=== PATIENT | male | born 1960 | race Caucasian/White ===

== ENCOUNTER 2016-08-07 18:26 | Emergency (ER) | payer MEDICARE, MEDICAID | END 2016-08-07 21:22 | disposition home or self-care (01) | LOC: D.ER 18:26 | DX: M25.552 Pain in left hip (principal); S76.012A Strain of muscle, fascia and tendon of left hip, initial encounter; X58.XXXA Exposure to other specified factors, initial encounter; Y93.89 Activity, other specified; Y92.89 Other specified places as the place of occurrence of the external cause; M62.838 Other muscle spasm; I10 Essential (primary) hypertension ==

== ENCOUNTER 2017-04-25 05:30 | Day surgery (SDC) | payer MEDICARE, MEDICAID ==
[2017-04-21 13:11] LABS: BASOPHILS 0.3 % (0-2); HEMATOCRIT 36.6 % (42.0-54.0); HEMOGLOBIN 12.2 g/dL (13.5-17.5); IMMATURE GRANULOCYTES 0.3 % (0-5); LYMPHOCYTES 36.9 % (15-50); MCH 31.9 pg (26.0-34.0); MCHC 33.3 g/dL (31.0-37.0); MCV 95.8 fL (80.0-100.0); MEAN PLATELET VOLUME 9.3 fL (7.4-10.4); MONOCYTES 12.8 % (2-11); NEUTROPHILS 45.7 % (40-80); RBC 3.82 10x6/uL (4.20-6.10); RDW 13.3 % (11.5-14.5)
[2017-04-21 13:17] LABS: PLATELET COUNT 146 10x3/uL (130-400)
[2017-04-21 13:24] LABS: ANION GAP 13.9 mmol/L (8-16); CALCIUM 9.2 mg/dL (8.5-10.1); CARBON DIOXIDE 30.3 mmol/L (21.0-32.0); CREATININE - SERUM 5.8 mg/dL (0.6-1.3); POTASSIUM - SERUM 4.2 mmol/L (3.5-5.1)
[2017-04-21 13:25] LABS: INR 0.97 (0.85-1.17); PROTIME 12.4 SECONDS (11.6-15.0)
[2017-04-21 13:28] LABS: APTT 146.4 SECONDS (22.8-39.4)
[~2017-04-25] VITALS: Ht 182.9 cm; Wt 81.6 kg
[~2017-04-25 05:30] MED LIST: CLONAZEPAM2 MG/TAB PO; HYDRALAZINE HCL25 MG PO
[2017-04-25] MEDS ORDERED: ZYLOPRIM100 MG PO (06:34)
[2017-04-25] MEDS ORDERED: CARAFATE1 G PO (06:35)
[2017-04-25 06:36] VITALS: Ht 182.9 cm; Wt 81.6 kg
--- NOTE | 2017-04-25 08:56 | NUR ---
ANESTHESIA DID BLOCK TO LEFT ARM, SEE ANESTHESIA NOTES
--- NOTE | 2017-05-12 15:11 | OP ---
PATIENT NAME: OVI DENG JR MEDICAL RECORD: [id number] :60 LOCATION:[facility] ADMISSION DATE: SURGEON: OLGA AVILES MD DATE OF OPERATION: 04/25/2017 PREOPERATIVE DIAGNOSIS: End-stage renal disease, on dialysis. POSTOPERATIVE DIAGNOSIS: End-stage renal disease, on dialysis. REFERRING PHYSICIAN: Dr. Frey. ADDITIONAL DIAGNOSIS: Other mechanical complication of left arm AV fistula. SURGEON: Olga Aviles MD. ANESTHESIA: Nerve block per Dr. Pitts and general anesthesia by LMA per WRAP CHECKER. PREOPERATIVE NOTE: Mr. Deng is a 56-year-old white male patient with end-stage renal disease, who is on hemodialysis at this time using a tunneled catheter. He has had a prior wrist fistula, which failed and has had a prior distal brachial or even proximal radial artery based AV fistula, which drained entirely to the basilic system and that brachiobasilic fistula has never been translocated. It is difficult to access of course and needs revision by translocation and he is brought to the operating room for that procedure today. Under general anesthetic and with the nerve block, he was prepped and draped in a sterile manner. I examined him with duplex ultrasound and then made a long incision from axilla to antecubital space. The incision subsequently curved transversely in order to expose the basilic vein and the medial cubital vein down to the arterial anastomosis. The vein was found to have a fairly intense inflammatory reaction around his lower half, I assume from prior percutaneous access for dialysis. The upper half was in good shape. The vein itself was generally well matured. The wall of the JA segment was quite thickened. The inflammatory process around the distal half made the dissection considerably more difficult, but the vein was eventually mobilized with quite a bit of redundancy, which allowed me to place it in a very nice anterior tunnel. The patient was heparinized with 3000 units of heparin and a tunnel made with Impra tunneling device and a Terence tunneler. The vein was clamped and transected. It was treated with topical papaverine and flushed with heparinized saline. The arterial end also was flushed with heparinized saline and the vein marked with a surgical marker was then pulled through the subcutaneous tunnel as close to the skin as possible and back down to the antecubital space. There was ample length of vein to perform the anastomosis under no tension. The anastomosis was done between bevelled ends of the vein in an end-to-end fashion with running continuous 7-0 Prolene. When completed, the fistula developed flow and pulsation and the suture line was hemostatic; however, the flow in the proximal portion of the fistula was not satisfactory. I performed an intraoperative fistulogram and found the only problem was a stenosis at the anastomotic site. The patient, who had had his heparin partially reversed by this time, was given another 2000 units of heparin and after adequate circulation time, the graft was clamped proximal and distal to the anastomosis. The anastomosis was totally excised and the vein again bevelled. The ngo were thickened as I noted, but not quite so much as where the first anastomosis was done. Another end-to-end anastomosis between bevelled ends of the vein was performed with running 7-0 Prolene and when completed and clamps were released, much better flow developed OPERATIVE REPORT [id number] OVI DENG JR in the fistula and the suture line was indeed hemostatic and the suture line was not under any tension. I did not repeat a fistulogram at this point, I irrigated the wound with Ancef and gentamicin solution, assured hemostasis with electrocautery. During mobilization of the vein, it was necessary to actually divide a very broad communicating or perforating vein and both ends of that were oversewn with running 7-0 Prolene. I double checked that suture line on the basilic vein and found it to be hemostatic without any evidence of stenosis of the vein from that. The patient's wound was closed with interrupted inverted 3-0 Vicryl and running intracuticular 4-0 Monocryl and Dermabond glue. The site was dressed with Maxorb Ag, Tegaderm, and Cavilon skin prep. There was good flow in the radial artery by Doppler at the wrist and no signs of ischemia or any other complications. The patient was awakened and in stable condition taken to the recovery room. Blood loss during the operation was about 25 cc, none was replaced intraoperatively. All sponges, instruments, and needles were accounted for. No drain was used and no surgical specimen was submitted for histopathology. The patient was given a total of 5000 units of heparin during the procedure and this was partially reversed during the procedure with 15 mg of protamine. Also, the patient was given 20 mcg of DDAVP intraoperatively. PLAN: The patient will go home today with a prescription for Ranger 5/325, #20. He may take 1 or if necessary two p.o. q.4-6 hours p.r.n. for pain and he will resume his normal dialysis schedule and continue his home medications and renal diet and follow up with me in 2 weeks. I do think he is at risk for recurrent stenosis or stricturing of the JA segment and I recommend that he have an initial fistulogram at [facility] in 4 weeks. After that, probably the fistula can be utilized for access and the TDC removed. TRANSINT:[id number] Voice Confirmation ID: [id number] DOCUMENT ID: [id number] OLGA AVILES MD at 1511 CC: DAMON FREY MD [id number] DICTATION DATE: 04/25/171225 BIKE DESIGNER: 04/25/17 1311 [facility] 04/25/17 [facility] [address] [place] [address]
== END 2017-04-25 14:05 | disposition home or self-care (01) ==
LOC: D.OPS 05:30 → D.PAN 08:00 → D.OPS 14:05
PROVIDERS: Surgery
DX: T82.590A Other mechanical complication of surgically created arteriovenous fistula, initial encounter (principal); N18.6 End stage renal disease; Z99.2 Dependence on renal dialysis; Z01.812 Encounter for preprocedural laboratory examination

== ENCOUNTER 2017-05-16 09:05 | Inpatient (IN) | payer MEDICARE, MEDICAID ==
[~2017-05-16] VITALS: Ht 182.9 cm; Wt 80.9 kg
[2017-05-16] VITALS (7 sets, daily range): BP systolic 125–168; BP diastolic 57–73; BMI 24.8
[~2017-05-16 09:05] MED LIST changes: +CARAFATE1 G PO; +ZYLOPRIM100 MG PO
[2017-05-16] MEDS ORDERED: SENSIPAR60 MG PO (10:13)
[2017-05-16 10:32] LABS: ANION GAP 18.9 mmol/L (8-16); CALCIUM 9.8 mg/dL (8.5-10.1); CARBON DIOXIDE 26.2 mmol/L (21.0-32.0); CREATININE - SERUM 9.1 mg/dL (0.6-1.3); POTASSIUM - SERUM 5.1 mmol/L (3.5-5.1)
[2017-05-16 10:33] LABS: BASOPHILS 0.4 % (0-2); EOSINOPHILS 11.5 % (0-7); HEMATOCRIT 33.9 % (42.0-54.0); HEMOGLOBIN 10.6 g/dL (13.5-17.5); IMMATURE GRANULOCYTES 0.7 % (0-5); MCH 30.9 pg (26.0-34.0); MCHC 31.3 g/dL (31.0-37.0); MCV 98.8 fL (80.0-100.0); MEAN PLATELET VOLUME 8.8 fL (7.4-10.4); MONOCYTES 7.7 % (2-11); NEUTROPHILS 50.7 % (40-80); RBC 3.43 10x6/uL (4.20-6.10); RDW 12.7 % (11.5-14.5); WBC 5.5 10x3/uL (4.8-10.8)
[2017-05-16 10:35] LABS: PLATELET COUNT 258 10x3/uL (130-400)
[2017-05-16 10:38] LABS: APTT 37.4 SECONDS (22.8-39.4); INR 1.11 (0.85-1.17); PROTIME 13.9 SECONDS (11.6-15.0)
[2017-05-17] VITALS: BP 137/75
[2017-05-17 04:00] VITALS: BP 136/65
[2017-05-17 07:39] VITALS: BP 117/70
[2017-05-17 15:21] VITALS: BP 120/77
[2017-05-17 19:00] VITALS: BP 140/79
[2017-05-18] VITALS: BP 111/60
[2017-05-18 04:00] VITALS: BP 151/79
[2017-05-18 08:07] VITALS: BP 111/66
[2017-05-18 11:10] VITALS: BP 137/75
[2017-05-18 15:27] VITALS: BP 144/77
[2017-05-18 20:00] VITALS: BP 154/82
[2017-05-19] VITALS: BP 138/75
[2017-05-19 06:13] LABS: BASOPHILS 0.2 % (0-2); EOSINOPHILS 10.5 % (0-7); HEMOGLOBIN 9.5 g/dL (13.5-17.5); IMMATURE GRANULOCYTES 0.5 % (0-5); LYMPHOCYTES 32.7 % (15-50); MCHC 32.8 g/dL (31.0-37.0); MCV 94.8 fL (80.0-100.0); MONOCYTES 8.5 % (2-11); NEUTROPHILS 47.6 % (40-80); PLATELET COUNT 240 10x3/uL (130-400); RBC 3.06 10x6/uL (4.20-6.10); RDW 12.4 % (11.5-14.5); WBC 5.5 10x3/uL (4.8-10.8)
[2017-05-19 06:41] LABS: ANION GAP 19.3 mmol/L (8-16); CALCIUM 9.1 mg/dL (8.5-10.1); CARBON DIOXIDE 24.6 mmol/L (21.0-32.0); CREATININE - SERUM 10.6 mg/dL (0.6-1.3); POTASSIUM - SERUM 5.9 mmol/L (3.5-5.1)
[2017-05-19 07:48] VITALS: BP 133/75
[2017-05-19 11:39] VITALS: BP 147/93
[2017-05-19 19:00] VITALS: BP 139/85
[2017-05-20 04:00] VITALS: BP 164/89
[2017-05-20 07:13] LABS: HEMATOCRIT 27.4 % (42.0-54.0); HEMOGLOBIN 9.3 g/dL (13.5-17.5); MCH 31.8 pg (26.0-34.0); MCHC 33.9 g/dL (31.0-37.0); MCV 93.8 fL (80.0-100.0); MEAN PLATELET VOLUME 8.1 fL (7.4-10.4); NEUTROPHILS 52.2 % (40-80); PLATELET COUNT 242 10x3/uL (130-400); RBC 2.92 10x6/uL (4.20-6.10); RDW 12.6 % (11.5-14.5); WBC 5.4 10x3/uL (4.8-10.8)
[2017-05-20 07:25] LABS: ANION GAP 16.3 mmol/L (8-16); CALCIUM 9.3 mg/dL (8.5-10.1); CARBON DIOXIDE 26.8 mmol/L (21.0-32.0); POTASSIUM - SERUM 5.1 mmol/L (3.5-5.1); VANCOMYCIN - RANDOM 16.7 ug/mL (10.0-20.0)
[2017-05-20 07:27] LABS: PHOSPHOROUS 6.4 mg/dL (2.5-4.9)
[2017-05-20 08:26] VITALS: BP 138/85
[2017-05-20 11:40] VITALS: BP 139/71
[2017-05-20 16:11] VITALS: BP 147/96
[2017-05-20 19:00] VITALS: BP 146/85
[2017-05-21 01:00] VITALS: BP 138/79
[2017-05-21 03:34] VITALS: BP 152/83
[2017-05-21 05:40] LABS: BASOPHILS 0.4 % (0-2); HEMATOCRIT 31.3 % (42.0-54.0); HEMOGLOBIN 10.3 g/dL (13.5-17.5); IMMATURE GRANULOCYTES 0.4 % (0-5); MCH 31.3 pg (26.0-34.0); MCHC 32.9 g/dL (31.0-37.0); MCV 95.1 fL (80.0-100.0); MEAN PLATELET VOLUME 8.8 fL (7.4-10.4); NEUTROPHILS 42.2 % (40-80); PLATELET COUNT 259 10x3/uL (130-400); RBC 3.29 10x6/uL (4.20-6.10); RDW 12.7 % (11.5-14.5)
[2017-05-21 05:41] LABS: WBC 7.3 10x3/uL (4.8-10.8)
[2017-05-21 06:04] LABS: ANION GAP 18.8 mmol/L (8-16); CALCIUM 9.8 mg/dL (8.5-10.1); PHOSPHOROUS 7.6 mg/dL (2.5-4.9); POTASSIUM - SERUM 4.8 mmol/L (3.5-5.1)
[2017-05-21 06:07] LABS: CREATININE - SERUM 10.3 mg/dL (0.6-1.3)
[2017-05-21 08:32] VITALS: BP 151/79
[2017-05-21 11:24] VITALS: BP 146/83
[2017-05-21 15:46] VITALS: BP 140/71
[2017-05-21 20:00] VITALS: BP 155/79
[2017-05-22] VITALS: BP 150/92
[2017-05-22 04:00] VITALS: BP 149/85
[2017-05-22 06:45] LABS: ANION GAP 21.3 mmol/L (8-16); CALCIUM 9.5 mg/dL (8.5-10.1); CARBON DIOXIDE 25.1 mmol/L (21.0-32.0); CREATININE - SERUM 12.8 mg/dL (0.6-1.3); PHOSPHOROUS 7.6 mg/dL (2.5-4.9); POTASSIUM - SERUM 5.4 mmol/L (3.5-5.1)
[2017-05-22 06:57] LABS: BASOPHILS 0.3 % (0-2); EOSINOPHILS 9.9 % (0-7); HEMATOCRIT 29.8 % (42.0-54.0); HEMOGLOBIN 9.7 g/dL (13.5-17.5); IMMATURE GRANULOCYTES 0.3 % (0-5); LYMPHOCYTES 30.4 % (15-50); MCH 30.7 pg (26.0-34.0); MCHC 32.6 g/dL (31.0-37.0); MCV 94.3 fL (80.0-100.0); MONOCYTES 7.3 % (2-11); NEUTROPHILS 51.8 % (40-80); PLATELET COUNT 245 10x3/uL (130-400); RBC 3.16 10x6/uL (4.20-6.10); RDW 12.5 % (11.5-14.5); WBC 5.9 10x3/uL (4.8-10.8)
[2017-05-22 07:55] VITALS: BP 156/79
[2017-05-22 16:17] VITALS: BP 132/87
[2017-05-22 19:00] VITALS: BP 138/83
[2017-05-23 04:00] VITALS: BP 124/79
[2017-05-23 06:01] LABS: EOSINOPHILS 8.2 % (0-7); HEMATOCRIT 30.8 % (42.0-54.0); HEMOGLOBIN 9.9 g/dL (13.5-17.5); IMMATURE GRANULOCYTES 0.3 % (0-5); LYMPHOCYTES 32.5 % (15-50); MCHC 32.1 g/dL (31.0-37.0); MEAN PLATELET VOLUME 8.9 fL (7.4-10.4); MONOCYTES 8.6 % (2-11); NEUTROPHILS 49.4 % (40-80); RBC 3.19 10x6/uL (4.20-6.10); RDW 12.5 % (11.5-14.5); WBC 5.7 10x3/uL (4.8-10.8)
[2017-05-23 06:15] LABS: MCV 96.6 fL (80.0-100.0); PLATELET COUNT 195 10x3/uL (130-400)
[2017-05-23 06:20] LABS: ANION GAP 17.1 mmol/L (8-16); CARBON DIOXIDE 27.8 mmol/L (21.0-32.0); CREATININE - SERUM 9.6 mg/dL (0.6-1.3); PHOSPHOROUS 6.9 mg/dL (2.5-4.9); POTASSIUM - SERUM 5.9 mmol/L (3.5-5.1)
[2017-05-23 08:46] VITALS: BP 131/85
[2017-05-23 10:41] VITALS: Ht 182.9 cm; Wt 80.9 kg
[2017-05-23 11:23] VITALS: BP 138/83
[2017-05-23 15:39] VITALS: BP 140/77
[2017-05-23 20:00] VITALS: BP 138/82
[2017-05-24] VITALS: BP 142/87
[2017-05-24 04:00] VITALS: BP 122/70
[2017-05-24] MEDS ORDERED: BACTRIM DS TABL1 TAB PO (07:39)
[2017-05-24] MEDS ORDERED: DAKIN'S 0.125%480 M1 TOPICAL (07:40)
[2017-05-24 08:28] VITALS: BP 134/83
[2017-05-24 11:38] VITALS: BP 126/68
[2017-05-24 19:00] VITALS: BP 124/73
[2017-05-25 04:00] VITALS: BP 141/75
[2017-05-25 08:18] VITALS: BP 152/83
== END 2017-05-25 10:32 | disposition home health service (06) | DRG 252 ==
LOC: D.OPS 09:05 → D.M2 14:58 → D.OPS 14:59 → D.M2 15:00
PROVIDERS: Internal Medicine Nephrology; Surgery
PROC: 057A3ZZ Dilation of Left Brachial Vein, Percutaneous Approach (ICD-10-PCS; 2017-05-16)
PROC: 057F3ZZ Dilation of Left Cephalic Vein, Percutaneous Approach (ICD-10-PCS; 2017-05-16)
PROC: 0HCEXZZ Extirpation of Matter from Left Lower Arm Skin, External Approach (ICD-10-PCS; 2017-05-16)
PROC: B51W1ZZ Fluoroscopy of Dialysis Shunt/Fistula using Low Osmolar Contrast (ICD-10-PCS; principal; 2017-05-16 10:00)
PROC: 5A1D70Z Performance of Urinary Filtration, Intermittent, Less than 6 Hours Per Day (ICD-10-PCS; 2017-05-17)
DX: T82.7XXA Infection and inflammatory reaction due to other cardiac and vascular devices, implants and grafts, initial encounter (principal); N18.6 End stage renal disease; L76.32 Postprocedural hematoma of skin and subcutaneous tissue following other procedure; I12.0 Hypertensive chronic kidney disease with stage 5 chronic kidney disease or end stage renal disease; Y83.8 Other surgical procedures as the cause of abnormal reaction of the patient, or of later complication, without mention of misadventure at the time of the procedure; Z99.2 Dependence on renal dialysis; D63.1 Anemia in chronic kidney disease; E83.39 Other disorders of phosphorus metabolism; B96.89 Other specified bacterial agents as the cause of diseases classified elsewhere

== ENCOUNTER 2017-06-16 06:15 | Day surgery (SDC) | payer MEDICARE, MEDICAID ==
[~2017-06-16] VITALS: Ht 182.9 cm; Wt 81.6 kg
--- NOTE | ~2017-06-16 | OP ---
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 OPERATION PERFORMED: Left arm AV fistulogram followed by balloon angioplasty of the left brachiocephalic vein and drug-coated balloon therapy with a 12 mm diameter x 4 cm long Lutonix drug-coated balloon. SURGEON: Olga Aviles MD ANESTHESIA: General by ACCOUNTS RECEIVABLE MANAGER with LMA. REFERRING PHYSICIAN: Darius العلي MD PREOPERATIVE NOTE: Mr. Deng is a 57-year-old white male on chronic hemodialysis, presently with a right internal jugular tunneled dialysis catheter. He has had a left brachial artery to translocated basilic vein AV fistula created in 2 stages and did have a problem with postop infected hematoma, seroma, abscess in his left arm after the second procedure. Since then, he has had considerable swelling and has a known left brachiocephalic venous stenosis. He is brought to the operating room at this time to repeat fistulogram and likely repeat dilatation of the brachiocephalic vein. The arm itself is actually less swollen than when I saw in the office recently and I think that it is just generally time to begin using that arm for his dialysis access and get the catheter out. Under anesthesia in supine position, the patient was prepped and draped in sterile manner. The fistula was accessed near the arterial end with micropuncture technique and a fistulogram performed, which revealed no abnormalities other than a recurrent 80% stenosis of the left brachiocephalic vein. A fairly short stenosis involving the proximal segment just at the confluence with the right brachiocephalic to form no superior vena cava. This lesion was then dilated with a 12 mm diameter x 4 cm long Bard UVerse angioplasty balloon, which was inflated with full effacement. Following that, a repeat angiogram demonstrated about 10% persistent or recurrent elastic recoil stenosis. This area was then treated with a Lutonix balloon 12 mm diameter x 4 cm long, inflated to full effacement and 10 atmospheres of pressure and held inflated for 2 minutes. After that the drug-coated balloon was removed and repeat contrast injection revealed a good response with still about 10% persistent stenosis present. The hardware was removed and hemostasis obtained at the puncture site, which had been stepped up to a 9-Faroese. This was done with a cucxne-be-hhdzo 4-0 Prolene and some direct pressure. Subsequently, a dressing of Avitene, Ultrafoam, Tegaderm, and Cavilon skin prep was applied. OPERATIVE REPORT [id number] JERILYNCHLOÉOVIBALBINA LOVE JR I then exposed and prepped the patient's right internal jugular catheter. I did blunt dissection along the catheter in the chest subcutaneous tunnel and freed the Dacron Pooler cuff and removed the catheter. Hemostasis was obtained with a period of pressure and elevation of the head of the bed. Sterile dressing was applied there and the patient awakened and taken to the recovery room. Blood loss was about 10 cc or actually less than that, none was replaced. All sponges, instruments and needles were accounted for. No drain was used and no surgical specimen was submitted for histopathology. Mr. Deng will be allowed to go home today and continue all of the same home medications and renal diet. He will continue the same or routine dialysis schedule. Only his dialysis fistula in the left arm can now be used with 2 needles. It is quite well-developed and mature at this point. The patient should have a repeat angiogram at the first sign of recurrent swelling or venous outflow stenosis redeveloping. I rather expect the brachiocephalic vein will become more stenotic despite the drug-coated balloon therapy, although hopefully not. If it does, I think it should be stented and I think it should be stented with a balloon expandable stent 12 to 14 mm in diameter, probably a Wiseman balloon expandable stent 12 x 4. I would do that in the hospital. TRANSINT:[id number] Voice Confirmation ID: [id number] DOCUMENT ID: [id number] OLGA AVILES MD at 1404 CC: DARIUS العلي [id number] DICTATION DATE: 06/16/17 1306 COTTON OPENER: 06/16/171931 [facility] 06/16/17 [facility] [address] [id number]
[~2017-06-16 06:15] MED LIST changes: +BACTRIM DS TABL1 TAB PO; +DAKIN'S 0.125%480 M1 TOPICAL; +SENSIPAR60 MG PO
[2017-06-16 07:13] LABS: BASOPHILS 0.5 % (0-2); EOSINOPHILS 4.3 % (0-7); HEMOGLOBIN 10.7 g/dL (13.5-17.5); IMMATURE GRANULOCYTES 0.2 % (0-5); LYMPHOCYTES 37.2 % (15-50); MCH 31.2 pg (26.0-34.0); MCHC 32.4 g/dL (31.0-37.0); MCV 96.2 fL (80.0-100.0); MEAN PLATELET VOLUME 9.3 fL (7.4-10.4); MONOCYTES 12.2 % (2-11); NEUTROPHILS 45.6 % (40-80); RBC 3.43 10x6/uL (4.20-6.10); RDW 12.9 % (11.5-14.5); WBC 4.4 10x3/uL (4.8-10.8)
[2017-06-16 07:15] LABS: PLATELET COUNT 144 10x3/uL (130-400)
[2017-06-16 07:22] LABS: INR 1.06 (0.85-1.17); PROTIME 13.4 SECONDS (11.6-15.0)
[2017-06-16 07:24] LABS: ANION GAP 19.6 mmol/L (8-16); CALCIUM 8.9 mg/dL (8.5-10.1); CARBON DIOXIDE 26.5 mmol/L (21.0-32.0); CREATININE - SERUM 9.5 mg/dL (0.6-1.3); POTASSIUM - SERUM 5.1 mmol/L (3.5-5.1)
[2017-06-16 08:37] VITALS: Ht 182.9 cm; Wt 81.6 kg
== END 2017-06-16 15:30 | disposition home or self-care (01) ==
LOC: D.OPS 06:15
PROVIDERS: Surgery
DX: T82.590A Other mechanical complication of surgically created arteriovenous fistula, initial encounter (principal); N18.6 End stage renal disease; Z99.2 Dependence on renal dialysis; I87.1 Compression of vein; Z01.812 Encounter for preprocedural laboratory examination

== ENCOUNTER → 2019-10-31 11:47 | Outpatient (CLI) | payer MEDICARE ==
[2017-06-16 08:37] VITALS: BMI 24.4
== END | disposition home or self-care (01) ==
LOC: D.US 10:00
PROVIDERS: ATTEND Surgery
DX: M79.89 Other specified soft tissue disorders (principal)

== ENCOUNTER 2019-12-05 07:22 | Day surgery (SDC) | payer MEDICARE ==
[~2019-12-05] VITALS: Ht 182.9 cm; Wt 84.1 kg
--- NOTE | ~2019-12-05 | HEMODYNAMI ---
PATIENT:OVI DENG JR MEDICAL RECORD: [id number] : 60 LOCATION:[facility] ADMISSION DATE: 12/05/19 Generatedon:12/05/201912:08 Patient name: OVI DENG Patient #: [id number] SSN: : 1960 Date of study: 12/05/2019 Page: Of Hemodynamic Procedure Report Patient Data Patient Demographics Procedure consent was obtained First Name: OVI Gender: Male Last Name: SOWMYA Suffix: [facility] Initial: IVAN : 1960 Patient #: [id number] Age: 59 year(s) Race: Unknown Additional ID: [id number] Contact details [address]: [address] [place] [address] State: [place] [facility] [place]: [address] Past Medical History Allergies: No known allergies Admission Admission Data Admission Date: 12/05/2019 Admission Time: 7:22 Height (in.): 72 BSA: 2.07 (m2) Height (cm.): 182.88 BMI: 25.23 (kg/m2) Weight (lbs.): 186 Weight (kg.): 84.37 Procedure Procedure Types Cath Procedure Peripheral Cath Diagnostic Procedure [facility] Magistrate Peripheral Procedures Venography Extremity Right Lower Ext. Venagram Procedure Description Procedure Date Procedure Date: 12/05/2019 Procedure Start Time: 10:30 Procedure Staff Name Kerry Somers MD Performing Physician Charity Garcia RT Bingo Clerk Asha DOSHI RN Nurse Solomon Rosales RT Scrub Procedure Data Cath Procedure Fluoroscopy Diagnostic fluoroscopy Total fluoroscopy Time: 7.9 time: 7.9 min min Diagnostic fluoroscopy Total fluoroscopy dose: 660 dose: 660 mGy mGy Contrast Material Contrast Material Type Amount (ml) Isovue 300 150 Diagnostic catheters Device Type Used For End Catheter Placement Merit Impress KA 2 5Fr 40CM catheter ([id number]) Procedure Medications Medication Administration Route Dosage Lidocaine 1% added to field 20 Heparin Flush Bag added to field 2 bags (1000units/500ml NS) Fentanyl I.V. 50 mcg Versed I.V. 1 mg Fentanyl I.V. 25 mcg Versed I.V. 0.5 mg Fentanyl I.V. 25 mcg Versed I.V. 0.5 mg Heparin Bolus I.V. 5000 units Hemodynamics Rest BSA: 2.07 (m2) O2 Consumption: Estimated: 234.66 (ml/min) O2 Consumption indexed : Estimated:113.36 (ml/min/m) Heart Rate: 59 (bpm) Snapshots Pre Cath Intra NCS Post Cath Vital Signs Time Heart Resp SPO2 etCO2 NIBP (mmHg) Rhythm Pain Sedation Rate (ipm) (%) (mmHg) Status Level (bpm) 10:30:29 63 9 95 41.4 170/88(122) NSR 0 (11) 9(A) , No pain 10:34:51 58 8 100 40.6 174/92(156) NSR 0 (11) 9(A) , No pain 10:39:13 58 7 100 39.8 162/86(143) NSR 0 (11) 9(A) , No pain 10:43:39 57 8 100 42.1 151/79(136) NSR 0 (11) 8(A) , No pain 10:48:02 53 7 100 45.2 145/75(95) NSR 0 (11) 8(A) , No pain 10:52:20 53 8 100 42.9 138/77(98) NSR 0 (11) 8(A) , No pain 10:56:34 100 40.6 151/81(98) NSR 0 (11) 8(A) , No pain 11:00:33 9 42.1 No Cuff NSR 0 (11) 8(A) , No pain 11:05:32 51 9 100 37.6 Measuring NSR 0 (11) 8(A) , No pain 11:06:56 53 8 100 34.6 Time NSR 0 (11) 8(A) Exceeded , No pain 11:08:28 52 7 100 34.6 167/80(102) NSR 0 (11) 8(A) , No pain 11:12:55 53 8 37.6 160/84(130) NSR 0 (11) 8(A) , No pain 11:17:19 56 8 100 34.6 161/82(96) NSR 0 (11) 8(A) , No pain 11:21:41 54 3 39.9 161/84(126) NSR 0 (11) 8(A) , No pain 11:26:03 55 9 29.3 174/88(149) NSR 0 (11) 8(A) , No pain 11:31:02 57 8 39.1 Measuring NSR 0 (11) 8(A) , No pain 11:31:15 56 9 39.1 170/90(105) NSR 0 (11) 8(A) , No pain 11:35:37 56 14 38.4 167/97(102) NSR 0 (11) 8(A) , No pain 11:40:01 55 9 39.8 153/82(95) NSR 0 (11) 8(A) , No pain 11:44:21 56 7 100 39.1 161/80(93) NSR 0 (11) 8(A) , No pain 11:49:20 54 5 100 39.1 Measuring NSR 0 (11) 8(A) , No pain 11:49:26 55 5 100 23.3 157/87(99) NSR 0 (11) 8(A) , No pain 11:54:25 53 5 97 33.8 Measuring NSR 0 (11) 8(A) , No pain 11:54:58 56 12 96 43.6 167/84(104) NSR 0 (11) 8(A) , No pain 11:59:20 60 19 100 30.1 173/98(113) NSR 0 (11) 8(A) , No pain 12:03:45 56 10 39.1 176/93(105) NSR 0 (11) 8(A) , No pain Medications Time Medication Route Dose Verified Delivered Reason Notes Effectiveness by by 10:33:22 Lidocaine 1% added 20ml M J Long M J Yonis for local to vial MD MATIAS anesthetic field 10:33:33 Heparin Flush added 2 M J Long M J Long used for Bag to bags MD MATIAS procedure (1000units/500ml field NS) 10:39:19 Fentanyl I.V. 50 M J Long Minner for sedation mcg MD GLENDA RICH 10:39:35 Versed I.V. 1 mg M J Long Minner for sedation MD GLENDA RICH 11:06:25 Fentanyl I.V. 25 M J Long Minner for sedation mcg MD GLENDA RICH 11:06:30 Versed I.V. 0.5 M J Long Minner for sedation mg MD GLENDA RICH 11:33:02 Fentanyl I.V. 25 M J Long Minner for sedation mcg MD GLENDA RICH 11:33:06 Versed I.V. 0.5 M J Long Minner for sedation mg MD GLENDA RICH 11:40:44 Heparin Bolus I.V. 5000 M J Long Minner for units MD DOSHI anticoagulation stroke program coordinator Log Time Note 10:08:30 Patient Weight : 186 lbs 10:08:36 Patient Height : 72 inches 10:09:01 Use device set IR Diagnostic 10:09:02 Tegaderm 4 x 4 (1626W) opened to sterile field. 10:09:04 Sterile Angiographic Pack opened to sterile field. 10:09:05 Bag Decanter (2002S) opened to sterile field. 10:09:16 Micropuncture VSI 4FR kit opened to sterile field. 10:09:31 Time tracking: Regular hours (M-F 7:00 - 5:00) 10:09:46 Plan of Care:Hemodynamics will remain stable., Cardiac rhythm will remain stable., Comfort level will be maintained., Respiratory function will remain adequate., Patient/ family verbilizes understanding of procedure., Procedure tolerated without complication., Recovers from procedure without complications.. 10:09:54 Patient received from Outpatients to IR Alert and oriented. Tansferred to table in Supine position. 10:10:01 Signed procedure consent form obtained from patient. 10:10:07 H&P Date Dictated: 12/05/2019 Within 30 days and on chart., H&P Addendum completed by physician on day of procedure. (MUST COMPLETE FOR ALL OUTPATIENTS). 10:10:11 Pre-procedure instructions explained to patient. 10:10:12 Pre-op teaching completed and patient verbalized understanding. 10:10:15 Family unavailable. 10:10:18 Patient NPO since Midnight. 10:10:30 Patient allergic to No known allergies 10:10:35 Is the patient allergic to Iodine/contrast media? No. 10:11:19 Is patient on blood thinner?No 10:11:21 Patient diabetic? No. 10:11:23 - 10:11:25 ----Pre-sedation anethsthesia assessment.---- 10:11:28 Previous problem with sedation/anesthesia? No ? 10:11:31 Snore? Yes 10:11:34 Sleep apnea? No 10:11:36 Deviated septum? No 10:11:39 Opens mouth fully? Yes 10:11:40 Sticks out tongue? Yes 10:11:44 Airway obstruction? No ? 10:11:59 Dentures? Yes secure 10:15:00 SHEATH 6FR Chataignier (RHS559) opened to sterile field. 10:15:10 DOC .035 wire (M40136) opened to sterile field. 10:16:47 Popliteal region area was prepped with chlora-prep and draped in steril e fashion 10:16:49 - 10:29:17 ECG and BP/O2 sat monitors applied to patient. 10:29:18 Vital chart was started 10:29:19 Baseline sample Acquired. 10:29:21 Full Disclosure recording started 10:29:22 - 10:29:50 - 10:29:58 Physician arrived 10:29:59 --------ALL STOP TIME OUT------ 10:30:00 Final Timeout: patient, procedure, and site verified with staff and physician. All members of the team are in agreement. 10:30:21 Fire Safety Assessment: A--An alcohol-based skin anteseptic being used preoperatively., C--Open oxygen or nitrous oxide is being used. 10:30:29 5) <15 or on dialysis Very severe, or end stage kidney failure. 10:30:34 Procedure started. 10:30:46 Local anesthetic to right popliteal vein with Lidocaine 1% by Darren Somers MD.INITIAL ACCESS ONLY 10:33:22 Lidocaine 1% 20ml vial added to field was administered by Darren Somers MD; for local anesthetic; Verbal order read back and verified. 10:33:33 Heparin Flush Bag (1000units/500ml NS) 2 bags added to field was administered by Darren Somers MD; used for procedure; Verbal order read back and verified. 10:39:19 Fentanyl 50 mcg I.V. was administered by Asha DOSHI RN; for sedation; Verbal order read back and verified. 10:39:35 Versed 1 mg I.V. was administered by Asha DOSHI RN; for sedation; Verbal order read back and verified. 10:45:45 A Merit Impress KA 2 5Fr 40CM catheter ([id number]) was advanced over the wire and used for . 11:06:25 Fentanyl 25 mcg I.V. was administered by Asha DOSHI RN; for sedation; Verbal order read back and verified. 11:06:30 Versed 0.5 mg I.V. was administered by Asha DOSHI RN; for sedation; Verbal order read back and verified. 11:33:02 Fentanyl 25 mcg I.V. was administered by Asha DOSHI RN; for sedation; Verbal order read back and verified. 11:33:06 Versed 0.5 mg I.V. was administered by Asha DOSHI RN; for sedation; Verbal order read back and verified. 11:37:39 INFLATOR BasixTOUCH (RJ5195) opened to sterile field. 11:37:48 SAMANIEGO 260 wire (L60054) opened to sterile field. 11:40:34 GLIDE CATHETER 5FR ANGLED 65cm (CG507) opened to sterile field. 11:40:35 GLIDE WIRE ANGLE 180cm (IS1436) opened to sterile field. 11:40:44 Heparin Bolus 5000 units I.V. was administered by Asha DOSHI RN; fo r anticoagulation; Verbal order read back and verified. 11:43:26 Inflate balloon Inflation number: 1 A Evercross 6 x 6 x 135 Balloon ([id number]) was prepped and advanced across the Undefined1 , then inflated . 11:47:48 Inflate balloon Inflation number: 2 A EVERCROSS 10 X 60 X 135 BALLOOON ([id number]) was prepped and advanced across the Undefined1 , then inflated . 11:52:25 St Seun 7FR sheath opened to sterile field. 11:52:51 Inflate balloon Inflation number: 3 A ATLAS 14 x 4 x 75CM balloon ([id number]) was prepped and advanced across the Undefined1 , then inflated . 12:03:11 Procedure ended.(Physican Out) 12:03:17 Fluoroscopy time 07.90 minutes. 12:03:26 Fluoroscopy dose: 660 mGy 12:03:26 Flurop Dose total: 660 12:03:37 Contrast amount:Isovue 300 150ml. 12:08:28 Procedure and supply charges have been captured, reviewed, submitted an d are correct. 12:08:32 Report given to Outpatients. 12:08:56 Vital chart was stopped Intervention Summary Intervention Notes Time ActionType Lesion and Equipment Used Action# Pressure Duration Attributes 11:43:26 Inflate Undefined1 Evercross 6 x 6 1 0 00:00 balloon x 135 Balloon ([id number]) 11:47:48 Inflate Undefined1 EVERCROSS 10 X 2 0 00:00 balloon 60 X 135 BALLOOON ([id number]) 11:52:51 Inflate Undefined1 ATLAS 14 x 4 x 3 0 00:00 balloon 75CM balloon ([id number]) Device Usage Item Name Manufacture Quantity Catalog Number Hospital Part Current M inimal Lot# / Charge Number Stock Stock Serial# Code Tegaderm 4 x 4 3M 1 [id number] [id number] 5 (1626W) Sterile Cardinal 1 [id number] 256909 451766 5 Angiographic Health Pack Bag Decanter Microtek 1 [id number] 22731 040399 5 () Medical Inc. Micropuncture VSI VASCULAR 1 [id number] 141102 176635 5 VSI 4FR kit SOLUTIONS SHEATH 6FR Terumo 1 [id number] 191580 011657 797662 4 0 Chataignier (FYU170) DOC .035 wire Cook Medical 1 [id number] 551883 091483 5 ([id number]) Merit Impress Merit 1 [id number] 875644 151012 5 KA 2 5Fr 40CM Medical catheter ([id number]) INFLATOR Merit 1 [id number] 072267 343690 083623 5 BasixTOUCH Medical (WP1968) SAMANIEGO 260 wire Cook Medical 1 D17097 252679 01332 365287 5 ([id number]) GLIDE CATHETER Terumo 1 CG507 410055 975501 5 5FR ANGLED 65cm (CG507) GLIDE WIRE Terumo 1 TN5000 624794 130359 307483 5 ANGLE 180cm (BQ9982) Evercross 6 x 6 Medtronic 1 [id number] 438054 504485 5 x 135 Balloon ([id number]) EVERCROSS 10 X Medtronic 1 [id number] 591648 075748 1 60 X 135 BALLOOON ([id number]) St Seun 7FR St Seun 1 263615 426338 361949 5 sheath ATLAS 14 x 4 x Bard 1 [id number] 862608 742121 162680 5 75CM balloon ([id number]) Signature Audit Joes Stage Time Signature Unsigned Intra-Procedure 12/05/2019 Charity Garcia 12:08:53 PM RT(R) [facility] [address] [place] [address]
[2019-12-05 07:53] LABS: BASOPHILS 0.3 % (0-2); EOSINOPHILS 5.6 % (0-7); HEMATOCRIT 37.6 % (42.0-54.0); HEMOGLOBIN 11.7 g/dL (13.5-17.5); IMMATURE GRANULOCYTES 0.3 % (0-5); LYMPHOCYTES 21.2 % (15-50); MCH 30.7 pg (26.0-34.0); MCHC 31.1 g/dL (31.0-37.0); MCV 98.7 fL (80.0-100.0); MEAN PLATELET VOLUME 8.8 fL (7.4-10.4); MONOCYTES 9.5 % (2-11); NEUTROPHILS 63.1 % (40-80); PLATELET COUNT 117 10x3/uL (130-400); RBC 3.81 10x6/uL (4.20-6.10); RDW 13.7 % (11.5-14.5); WBC 3.8 10x3/uL (4.8-10.8)
[2019-12-05 08:00] LABS: APTT 34.8 SECONDS (22.8-39.4); INR 1.05 (0.85-1.17); PROTIME 13.7 SECONDS (11.6-15.0)
[2019-12-05 08:03] LABS: ANION GAP 14.6 mmol/L (8-16); CALCIUM 8.3 mg/dL (8.5-10.1); CARBON DIOXIDE 31.6 mmol/L (21.0-32.0); CREATININE - SERUM 8.6 mg/dL (0.6-1.3); POTASSIUM - SERUM 5.2 mmol/L (3.5-5.1)
[2019-12-05] MEDS ORDERED: RENVELA800 MG PO (08:27)
[2019-12-05] MEDS ORDERED: HYDROCODON-ACE1 EA10 PO (08:29)
[2019-12-05 08:52] VITALS: Ht 182.9 cm; Wt 84.1 kg
--- NOTE | 2019-12-05 17:15 | NUR ---
1600 PT STABLE AND DRESSINGS CDI. NO SWELLING AT SITE.INSTRUCTIONS GIVEN AND IV REMOVED
== END 2019-12-05 16:00 | disposition home or self-care (01) ==
LOC: D.SP 07:22 → EDSTATUS 10:00 → D.RAD 10:00 → D.SP 10:00
PROVIDERS: Radiology Vascular & Interventional Radiology; ATTEND Surgery
DX: N18.6 End stage renal disease (principal); Z99.2 Dependence on renal dialysis; T82.898A Other specified complication of vascular prosthetic devices, implants and grafts, initial encounter